=== PATIENT | female | born 1985 | race Caucasian/White ===

== ENCOUNTER → 2016-05-23 | Outpatient (CLI) | payer BC ==
--- NOTE | 2016-05-23 18:11 | DX ---
Right hand 3 views History: Pain. Polyarthralgia. Spondyloarthropathy. M13.0 Comparison: None. Findings: Right fingers, metacarpals and carpal bones demonstrate no evidence of degenerative or infl ammatory arthropathy. No erosions, joint space narrowing, osteophytes or destructive lesions. Impression: No evidence of degenerative or inflammatory arthropathy of the right hand.
--- NOTE | 2016-05-23 18:12 | DX ---
Left hand 3 views History: Pain. Polyarthralgia. Spondyloarthropathy. M 13.0 Comparison: None. Findings: Left fingers, metacarpals and carpal bones demonstrate no evidence of degenerative or infla mmatory arthropathy. No erosions, joint space narrowing, osteophytes or destructive lesions. Impression: No evidence of degenerative or inflammatory arthropathy of the left hand.
--- NOTE | 2016-05-23 18:17 | DX ---
Left knee, 3 views History: Pain. Polyarthralgia. Spondyloarthropathy. M13.0. Comparison: None. Findings: Lateral patellar tilt with mild lateral patellofemoral joint space narrowing. No tibiofemor al joint space narrowing, subchondral sclerosis or osteophytes. No destructive osseous lesions. Impression: 1. Lateral patellar tilt with mild lateral patellofemoral joint space narrowing. 2. No evidence of degenerative or inflammatory arthropathy of the tibiofemoral joint space or joint e ffusion.
--- NOTE | 2016-05-23 18:18 | DX ---
Right knee, 3 views History: Pain. Polyarthralgia. Spondyloarthropathy. M13.0. Comparison: None. Findings: No acute fracture or dislocation identified. No tibiofemoral joint space narrowing. No evid ence of femoral condyle or tibial plateau osteophytes. Lateral patellar tilt with mild lateral patell ofemoral joint space narrowing. No evidence of joint effusion. Impression: 1. No definite acute fracture. 2. Lateral patellar tilt with mild lateral patellofemoral joint space narrowing. 3. No evidence of significant degenerative or inflammatory arthropathy.
--- NOTE | 2016-05-23 18:39 | DX ---
Lumbar Spine 5 Views History: Polyarthralgia, left lower extremity sciatica. Comparison: Sacroiliac joints same day. 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 Alignment is normal. No fracture is identified. Vertebral body heights and disk spaces are preserved. There is no significant degenerative change. Moderate stool is present in the colon. Impression: 1. No visible etiology for the patient's symptoms. 2. Moderate stool in the colon.
--- NOTE | 2016-05-23 19:10 | DX ---
Bilateral Sacroiliac Joints 3 Views History: Polyarthralgia, left lower artery sciatica. Comparison: Lumbar spine same day. 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 No definite erosions are present in the sacroiliac joints. Minimal degenerative change is p resent in the left sacroiliac joint. No fracture is identified. Alignment of the hips is normal. Impression: No visible etiology for the patient's symptoms.
== END ==
LOC: BRMIMAGING 14:52
PROVIDERS: ATTEND Internal Medicine
DX: M22.91 Unspecified disorder of patella, right knee (principal); M22.92 Unspecified disorder of patella, left knee; M13.0 Polyarthritis, unspecified; M54.32 Sciatica, left side
CPT/HCPCS: 72100-PO; 72202-PO; 73130-PO; 73564-PO